=== PATIENT | female | born 1985 | race Caucasian/White ===

== ENCOUNTER → 2016-05-06 | Outpatient (CLI) | payer OTHER ==
[~2016-05-06] MED LIST: IBUP-232 PO; IBUP600 PO; OXYC1TAB63 PO; PERC5TAB12 PO
== END ==
LOC: HPND 14:57
PROVIDERS: ATTEND Obstetrics & Gynecology
DX: O36.5990 Maternal care for other known or suspected poor fetal growth, unspecified trimester, not applicable or unspecified (principal); Z3A.00 Weeks of gestation of pregnancy not specified
CPT/HCPCS: 76816

== ENCOUNTER 2016-05-22 08:03 | Inpatient (IN) | payer OTHER ==
[2016-05-22] VITALS (85 sets, daily range): BP systolic 70–142; BP diastolic 30–90; PULSE 57–151; RESP 18; TEMP 98.1–99.2; O2SAT 100
[~2016-05-22 08:03] MED LIST changes: -IBUP-232 PO; -OXYC1TAB63 PO
[2016-05-22] MEDS ORDERED: OXYTOCIN 30 UNITS-500ML PREMIX 500 ML ONE (08:33)
[2016-05-22 09:20] LABS: BLOOD, URINE NEG (NEG); COMMENT (UR) CULT NOT INDICATED; CULTURE IF INDICATED CULT NOT INDICATED; GLUCOSE,URINE NEG (NEG); KETONE, URINE NEG (NEG); NITRITE,URINE NEG (NEG); PH, URINE 6.5 (5.0-8.5); SQUAMOUS EPITHELIAL CELL URINE 1 /hpf (0-5); URINE COLOR YELLOW (YELLW/STRAW)
[2016-05-22] MEDS ORDERED: OXYTOCIN 30 UNITS/NS 500ML PREMIX IV SCH (09:30)
[2016-05-22] MEDS ORDERED: OXYTOCIN 30 UNITS 500ML PREMIX IV ONE (09:45)
[2016-05-22] MEDS ORDERED: LIDOCAINE HCL 1% 50 ML VIAL I-DERMAL PRN (09:45)
[2016-05-22] MEDS ORDERED: CITRIC ACID-SODIUM CITRATE LIQ 30 ML UDC PO SCH (09:45)
[2016-05-22] MEDS ORDERED: MINERAL OIL 10 ML VIAL TOP PRN (09:45)
[2016-05-22] MEDS ORDERED: LACTATED RINGER'S 1000 ML BOLUS IV PRN (09:45)
[2016-05-22] MEDS ORDERED: ONDANSETRON HCL 4 MG/2 ML VIAL IV PRN (09:45)
[2016-05-22] MEDS ORDERED: NS 1000 ML IV PRN (09:45)
[2016-05-22] MEDS ORDERED: LIDOCAINE HCL 1% 50 ML VIAL INFIL PRN (09:45)
[2016-05-22] MEDS ORDERED: NS 500 ML BOLUS IV PRN (09:45)
[2016-05-22 09:53] LABS: BASOPHIL % 0.4 % (0.0-2.0); EOSINOPHIL # 0.1 TH/MM3 (0-0.4); EOSINOPHIL % 0.9 % (0.0-4.0); HEMATOCRIT 28.9 % (35.0-46.0); HEMO FLAGS DIFF FINAL; LYMPH % 24.3 % (9.0-44.0); LYMPHOCYTE # 1.4 TH/MM3 (1.0-4.8); MEAN CELL VOLUME 76.8 FL (80.0-100.0); MEAN CORPUSCULAR HEMOGLOBIN 25.5 PG (27.0-34.0); MEAN CORPUSCULAR HGB CONC 33.2 % (32.0-36.0); MONO % 6.1 % (0.0-8.0); NEUT % 68.3 % (16.0-70.0); PLATELET COUNT 139 TH/MM3 (150-450); RED BLOOD COUNT 3.76 MIL/MM3 (4.00-5.30); RED CELL DISTRIBUTION WIDTH 14.7 % (11.6-17.2); WHITE BLOOD COUNT 5.9 TH/MM3 (4.0-11.0)
[2016-05-22] MEDS ORDERED: PENICILLIN G POT 5,000,000 UNITS/NS 100 ML (Mini-Bag Plus) IV ONE ×2 (10:00)
[2016-05-22] MEDS: LACTATED RINGER'S 1000 ML IV SCH ×2 (10:14→14:12)
[2016-05-22] MEDS ORDERED: fentaNYL 2MCG-BUPIV 0.125% INJ 100 ML ONE (11:37)
[2016-05-22] MEDS ORDERED: ePHEDrine/NS 25 MG/5 ML SYR ONE (13:47)
[2016-05-22] MEDS ORDERED: PENICILLIN G POT 2,500,000 UNITS/NS 100 ML IV SCH ×2 (14:00)
[2016-05-22] MEDS ORDERED: MEASLES, MUMPS, RUBELLA VACCINE 0.5 ML VIAL SQ ONE (16:00)
[2016-05-22] MEDS ORDERED: DIPHTH/TETANUS/ACEL PERTUSSIS (BOOSTER) 0.5 ML VIAL/PFS IM ONE (16:00)
--- NOTE | 2016-05-22 19:02 | PD.OB.DELI ---
Delivery Date: May 22, 2016 Anesthesia: Epidural Episiotomy: None Vaginal Delivery: Normal Presentation: Occiput anterior Nuchal Cord: x1 Delayed cord clamping (45 sec): Yes Infant: Female, Single One Minute : 9 Five Minute : 9 Weight: 8-2 Infant Care: Suctioned, Spontaneous crying, Responded to stimulation Placenta: Spontaneous delivery, Intact, 3 vessel cord Laceration: No lacerations Олег Maynard MD May 22, 2016 19:01
[2016-05-22] MEDS ORDERED: OXYTOCIN 10 UNIT/ML AMP XX PRN (19:15)
[2016-05-22] MEDS ORDERED: ONDANSETRON ODT 4 MG TAB PO PRN (19:15)
[2016-05-22] MEDS ORDERED: ZOLPIDEM TARTRATE 5 MG TAB PO PRN (19:15)
[2016-05-22] MEDS ORDERED: ALUMINUM/MAGNESIUM/SIMETH 30 ML CUP PO PRN (19:15)
[2016-05-22] MEDS ORDERED: ACETAMINOPHEN 325 MG TAB PO PRN (19:15)
[2016-05-22] MEDS ORDERED: oxyCODONE/ACETAMINOPHEN 5 MG/325 MG TAB PO PRN ×2 (19:15)
[2016-05-22] MEDS ORDERED: SODIUM CHLORIDE 0.9% FLUSH 5 ML FLUSH IV PRN (19:15)
[2016-05-22] MEDS ORDERED: OXYTOCIN 30 UNITS-500ML PREMIX 500 ML IV ONE (19:15)
[2016-05-22] MEDS ORDERED: BENZOCAINE 20% TOPICAL SPRAY 60 ML CAN TOPICAL PRN (19:15)
[2016-05-22] MEDS: IBUPROFEN 600 MG TAB PO PRN (19:52)
[2016-05-22] MEDS: WITCH HAZEL 50%/GLYCERIN 12.5% 40 PAD JAR TOPICAL PRN (22:26)
[2016-05-22] MEDS: DOCUSATE SODIUM 50 MG/SENNA 8.6 MG TAB PO PRN (22:27)
[2016-05-23] MEDS: IBUPROFEN 600 MG TAB PO PRN (03:25)
--- NOTE | 2016-05-23 06:09 | HHI.OB ---
Subjective Post Day: 1 Remarks pain controlled, mod lochia, vandana po, +void/flatus Objective Vitals/I&O Vital Signs Date Time Temp Pulse Resp B/P Pulse Ox O2 Delivery O2 Flow Rate FiO2 05/22/16 22:00 98.6 67 18 119/64 05/22/16 20:15 98.2 05/22/16 19:45 18 05/22/16 19:31 60 135/74 05/22/16 19:30 18 05/22/16 19:16 69 130/73 05/22/16 19:15 18 05/22/16 19:01 67 133/62 05/22/16 19:00 18 05/22/16 18:46 83 128/30 05/22/16 18:31 109 133/75 05/22/16 18:15 95 140/83 05/22/16 18:02 99.2 18 05/22/16 18:01 74 134/69 05/22/16 17:45 72 141/80 05/22/16 17:30 75 132/82 05/22/16 17:15 84 135/83 05/22/16 17:00 62 140/90 05/22/16 16:45 65 125/69 05/22/16 16:30 67 121/59 05/22/16 16:15 65 126/69 05/22/16 16:11 73 129/72 05/22/16 16:06 84 142/80 05/22/16 16:00 90 119/84 05/22/16 15:55 76 130/82 05/22/16 15:50 65 122/78 05/22/16 15:45 69 112/63 05/22/16 15:40 69 126/70 05/22/16 15:35 65 112/57 05/22/16 15:30 62 123/61 05/22/16 15:25 74 112/63 05/22/16 15:21 66 127/62 05/22/16 15:20 67 05/22/16 15:15 76 141/70 100 05/22/16 15:10 98.1 77 125/66 05/22/16 15:09 18 05/22/16 15:05 63 115/66 05/22/16 15:00 61 05/22/16 15:00 119/72 05/22/16 14:55 90/74 05/22/16 14:50 75 129/69 05/22/16 14:45 82 128/67 05/22/16 14:41 98/66 05/22/16 14:30 97 100/64 05/22/16 14:25 101 116/65 05/22/16 14:24 69 111/62 05/22/16 14:20 151 86/48 05/22/16 14:15 71 100/59 05/22/16 14:10 63 109/63 05/22/16 14:06 68 103/58 05/22/16 14:04 80 95/56 05/22/16 14:00 84 99/49 05/22/16 13:57 79 104/59 05/22/16 13:55 84 93/48 05/22/16 13:49 58 107/65 05/22/16 13:45 66 70/40 05/22/16 13:43 61 115/65 05/22/16 13:31 60 99/56 05/22/16 13:16 57 115/67 05/22/16 13:13 72 109/56 05/22/16 13:10 98.2 18 05/22/16 13:09 60 114/76 05/22/16 13:06 62 111/66 05/22/16 13:03 59 114/65 05/22/16 13:00 66 114/66 05/22/16 12:57 67 114/64 05/22/16 12:55 67 05/22/16 12:54 58 114/66 05/22/16 12:51 78 118/73 05/22/16 12:50 69 05/22/16 12:49 72 104/82 05/22/16 12:45 75 116/84 05/22/16 12:44 75 138/65 05/22/16 12:43 77 132/80 05/22/16 12:40 72 05/22/16 12:30 72 129/83 05/22/16 12:15 81 124/76 05/22/16 12:00 73 127/72 05/22/16 11:45 73 117/76 05/22/16 11:30 69 116/77 05/22/16 11:15 85 121/83 05/22/16 11:02 78 115/84 2/4/17 10:46 70 105/60 05/22/16 10:31 68 128/64 05/22/16 10:15 63 123/81 05/22/16 10:04 62 130/74 Objective Remarks GENERAL: Well-nourished, well-developed patient. CARDIOVASCULAR: Regular rate and rhythm without murmurs, gallops, or rubs. RESPIRATORY: Breath sounds equal bilaterally. No accessory muscle use. ABDOMEN/GI: Abdomen soft, non-tender. Fundus: Firm, non-tender at umbilicus. GENITOURINARY: Light to moderate bleeding. EXTREMITIES: No cyanosis or edema, non-tender, without signs of DVT. Medications and IVs Current Medications Medications (Trade) Dose Ordered Sig/Natalie Route Start Time Stop Time Status Last Admin (NS Flush) 2 ml BID IV 05/22/16 21:00 (NS Flush) 2 ml UNSCH PRN IV 05/22/16 19:15 (Tylenol) 650 mg Q4H PRN PO 05/22/16 19:15 (Motrin) 600 mg Q6H PRN PO 05/22/16 19:15 05/23/16 03:25 (Percocet 5-325 Mg) 1 tab Q4H PRN PO 05/22/16 19:15 (Percocet 5-325 Mg) 2 tab Q4H PRN PO 05/22/16 19:15 (Americaine 20% Top Spr) 1 spray Q4H PRN TOPICAL 05/22/16 19:15 05/22/16 22:26 (Tucks Pads) 1 applic QID PRN TOPICAL 05/22/16 19:15 05/22/16 22:26 (Georgina-Colace) 2 tab Q12H PRN PO 05/22/16 19:15 05/22/16 22:27 (Ambien) 5 mg HS PRN PO 05/22/16 19:15 (Mag-Al Plus Susp Liq) 15 ml Q8H PRN PO 05/22/16 19:15 (Zofran Odt) 4 mg Q6H PRN PO 05/22/16 19:15 Assessment/Plan Problem List: (1) Spontaneous vaginal delivery Plan: cont pp Олег Rincon MD May 23, 2016 06:09
[2016-05-23 08:15] VITALS: BP 110/70; PULSE 59; RESP 18; TEMP 98.4
[2016-05-23] MEDS: oxyCODONE/ACETAMINOPHEN 5 MG/325 MG TAB PO PRN ×3 (08:43→19:52)
[2016-05-23] MEDS: DOCUSATE SODIUM 50 MG/SENNA 8.6 MG TAB PO PRN (19:51)
[2016-05-23] MEDS: SODIUM CHLORIDE 0.9% FLUSH 5 ML FLUSH IV SCH (20:23)
[2016-05-24] MEDS: IBUPROFEN 600 MG TAB PO PRN (00:59)
[2016-05-24] MEDS: oxyCODONE/ACETAMINOPHEN 5 MG/325 MG TAB PO PRN ×2 (01:00→09:43)
[2016-05-24 08:22] VITALS: BP 108/64; PULSE 49; RESP 18; TEMP 98
[2016-05-24] MEDS ORDERED: IBUP-232 PO (08:41)
[2016-05-24] MEDS ORDERED: OXYC1TAB63 PO (08:41)
--- NOTE | 2016-05-24 08:44 | HHI.DCPOC ---
Discharge Care Plan Diagnosis: (1) Spontaneous vaginal delivery Your Health Problems Are: Vaginal delivery Report Symptoms to Your Doctor -Temperate above 100.5 degrees -Redness, of incision or excessive or foul smelling drainage -Unusual pain or calf pain -Increased vaginal bleeding -Painful or difficulty urinating -Feelings of extreme sadness or anxiety after 2 weeks Goals to Promote Your Health * To prevent worsening of your condition and complications * To maintain your health at the optimal level Directions to Meet Your Goals Take your medications as prescribed Follow your dietary instruction Follow activity as directed Ensure plenty of rest for recovery Drink fluids for hydration Keep your appointments as scheduled Take your immunizations and boosters as scheduled If your symptoms worsen call your PCP, if no PCP go to Urgent Care Center or Emergency Room Smoking is Dangerous to Your Health. Avoid second hand smoke Call the 24-hour crisis hotline for domestic abuse at Олег Maynard MD May 24, 2016 08:44
--- NOTE | 2016-05-24 08:50 | HHI.DS ---
Admission Date May 22, 2016 at 08:03 Discharge Date: May 24, 2016 Admitting Diagnosis IUP@ TERM, induction of labor Diagnosis: Delivery Date: May 22, 2016 Vaginal Delivery: Normal : Female, Single Hospital Course pt was admitted given pitocin and had . by ppd 2 pt was voiding, passing gas with good pain control and stable for d/c home. Pt Condition on Discharge: Stable Discharge Disposition: Discharge Home Discharge Instructions Diet Instructions: As Tolerated, No Restrictions Additional Diet Instructions: Drink at least 8 - 16 oz bottles of water a day Activities You Can Perform: Shower Only-No Bath, Sitz Bath Activities to Avoid: Lifting/Bending, Sexual Activity Additional Activity Instruc.: No driving until off pain medications Do not lift anything heavier than your baby in an carrier Олег Maynard MD May 24, 2016 08:50
[2016-05-24] MEDS: SODIUM CHLORIDE 0.9% FLUSH 5 ML FLUSH IV SCH (09:00)
[2016-05-24] MEDS: DOCUSATE SODIUM 50 MG/SENNA 8.6 MG TAB PO PRN (09:43)
[2016-05-24] MEDS: WITCH HAZEL 50%/GLYCERIN 12.5% 40 PAD JAR TOPICAL PRN (09:43)
== END 2016-05-24 13:44 | disposition home or self-care (01) | DRG 775 ==
LOC: H2EB 08:03 → H1EA 20:55
PROVIDERS: ADMIT Obstetrics & Gynecology; ATTEND Obstetrics & Gynecology
PROC: 10E0XZZ Delivery of Products of Conception, External Approach (ICD-10-PCS; principal; 2016-05-22)
PROC: 3E033VJ Introduction of Other Hormone into Peripheral Vein, Percutaneous Approach (ICD-10-PCS; 2016-05-22)
PROC: 3E0R3CZ (ICD-10-PCS; 2016-05-22)
PROC: 00HU33Z Insertion of Infusion Device into Spinal Canal, Percutaneous Approach (ICD-10-PCS; 2016-05-22)
DX: O69.81X0 Labor and delivery complicated by cord around neck, without compression, not applicable or unspecified (principal); O99.824 Streptococcus B carrier state complicating childbirth; Z37.0 Single live birth; Z3A.00 Weeks of gestation of pregnancy not specified
CPT/HCPCS: 81001; 85025; 86900; 86901; 90715; J2540; J2590; J7120